=== PATIENT | female | born 1940 | race Caucasian/White ===

== ENCOUNTER 2020-10-29 16:24 | Emergency (ER) | payer MEDICARE ==
--- NOTE | 2020-10-29 19:12 | CT ---
EXAM: CT of the cervical spine without contrast HISTORY: Fall with neck fracture COMPARISON: Cervical spine series 10/29/2020 TECHNIQUE: Multiple contiguous axial images were obtained in a CT of the cervical spine without contr ast. Sagittal and coronal reformats were performed. FINDINGS: There is a fracture of the anterior and inferior aspect of the C2 vertebral body. There is a fracture of the left lateral mass of C2 extending through the vertebral foramen and a fracture of the right pedicle of C2. The vertebral bodies demonstrate normal alignment without subluxation. Moder ate degenerative changes are present. No prevertebral soft tissue swelling is seen. The posterior facets are well aligned. Normal alignment of the skull base with the cervical spine is seen. The lung apices and cervical soft tissues are unremarkable. IMPRESSION: C2 fractures as above.
== END 2020-10-29 22:51 | disposition home or self-care (01) ==
LOC: ERS 16:24
DX: S12.100A Unspecified displaced fracture of second cervical vertebra, initial encounter for closed fracture (principal); I12.9 Hypertensive chronic kidney disease with stage 1 through stage 4 chronic kidney disease, or unspecified chronic kidney disease; N18.30 Chronic kidney disease, stage 3 unspecified; Z87.891 Personal history of nicotine dependence; Z79.82 Long term (current) use of aspirin; Z79.899 Other long term (current) drug therapy; W01.10XA Fall on same level from slipping, tripping and stumbling with subsequent striking against unspecified object, initial encounter
CPT/HCPCS: 72125

== ENCOUNTER 2020-11-16 09:19 | Outpatient (CLI) | payer MEDICARE ==
--- NOTE | 2020-11-16 10:18 | RAD ---
3 views of the cervical spine: 11/16/2020 COMPARISON: 10/29/2020 HISTORY: Cervical spine fracture status post immobilization FINDINGS: The open-mouth odontoid view demonstrates a normal-appearing dens. C1-2 articulation appear s normal on the open-mouth odontoid view. On the lateral examination there is an obliquely oriented mildly anteriorly displaced fracture involving the inferior anterior corner of the C2 vertebral body. Lucency is seen in the region of the pars intraarticularis suggesting an associated hangman's fracture type fracture, better assessed on prior CT performed 10/29/2020. On the lateral exam there is anterolisthesis at the C2-3 level measuring in the 4 mm range, which melvin ears similar when compared to the prior exam. There is disc space narrowing with degenerative endplate change and anterior osteophyte formation at C5-6/C6-7. IMPRESSION: Findings suggesting stable fracture deformities at the C2 level, better assessed on the 1 12/30/[address]
== END 2020-11-16 09:20 | disposition home or self-care (01) ==
LOC: TBSIIMAG 09:19
PROVIDERS: ATTEND Surgery
DX: S12.9XXA Fracture of neck, unspecified, initial encounter (principal)
CPT/HCPCS: 72040

== ENCOUNTER 2020-12-12 08:43 | Outpatient (CLI) | payer MEDICARE ==
--- NOTE | 2020-12-12 10:48 | RAD ---
CERVICAL SPINE SERIES 3 VIEWS: Date: 12/12/2020 HISTORY: Follow-up fracture. COMPARISON: 11/16/2020 exam. FINDINGS: The bones appear demineralized. 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 The C2 fracture and minimal anterolisthesis are all stable as compared to the prior exam. IMPRESSION: Stable fracture deformity at C2. POS: [facility]
== END 2020-12-12 08:44 | disposition home or self-care (01) ==
LOC: TBSIIMAG 08:43
PROVIDERS: ATTEND Surgery
DX: S12.9XXA Fracture of neck, unspecified, initial encounter (principal); M43.8X2 Other specified deforming dorsopathies, cervical region
CPT/HCPCS: 72040

== ENCOUNTER 2021-01-23 09:06 | Outpatient (CLI) | payer MEDICARE | END 2021-01-23 09:07 | disposition home or self-care (01) | LOC: TBSIIMAG 09:06 | PROVIDERS: ATTEND Surgery | DX: S12.100A Unspecified displaced fracture of second cervical vertebra, initial encounter for closed fracture (principal); M47.816 Spondylosis without myelopathy or radiculopathy, lumbar region; M47.814 Spondylosis without myelopathy or radiculopathy, thoracic region; M43.12 Spondylolisthesis, cervical region; M41.9 Scoliosis, unspecified; K44.9 Diaphragmatic hernia without obstruction or gangrene; W19.XXXA Unspecified fall, initial encounter | CPT/HCPCS: 72040; 72072; 72100 ==

== ENCOUNTER 2021-04-01 14:19 | Outpatient (CLI) | payer MEDICARE | END 2021-04-01 14:20 | disposition home or self-care (01) | LOC: BICMAMMO 14:19 | PROVIDERS: ATTEND Internal Medicine | DX: Z13.820 Encounter for screening for osteoporosis (principal); M94.9 Disorder of cartilage, unspecified | CPT/HCPCS: 77080 ==

== ENCOUNTER 2022-03-10 13:46 | Outpatient (CLI) | payer MEDICARE ==
[2022-03-11 00:11] LABS: SARS-CoV-2 PCR by NAA Not Detected (NotDetected)
== END 2022-03-10 13:47 | disposition home or self-care (01) ==
LOC: LABBT 13:46
PROVIDERS: ATTEND Ophthalmology Retina Specialist
DX: H18.422 Band keratopathy, left eye (principal); Z20.822 Contact with and (suspected) exposure to COVID-19
CPT/HCPCS: U0003; U0005

== ENCOUNTER 2022-03-13 05:53 | Day surgery (SDC) | payer MEDICARE ==
[2022-03-11 11:10] VITALS: BMI 26.9
[2022-03-13] MEDS ORDERED: Midazolam HCl 2 mg/2 ml Vial ONE (06:50)
[2022-03-13] MEDS ORDERED: fentaNYL Citrate/PF 100 MCG/2 ML SYRINGE ONE (06:50)
[2022-03-13] MEDS ORDERED: PROPOFOL 20 ML ONE (06:50)
[2022-03-13] MEDS ORDERED: Maxitrol 0.1% Opth Oint 3.5 GM TUBE ONE (07:07)
[2022-03-13] MEDS ORDERED: Lidocaine 4% PF 5 ML AMP ONE (07:07)
[2022-03-13] MEDS ORDERED: Bupivacaine 0.75% 10 ML VIAL ONE (07:07)
== END 2022-03-13 09:00 | disposition home or self-care (01) ==
LOC: SDC 05:53
PROVIDERS: ATTEND Ophthalmology Retina Specialist
PROC: 08Q9XZZ Repair Left Cornea, External Approach (ICD-10-PCS; principal; 2022-03-13)
DX: H18.422 Band keratopathy, left eye (principal); Z79.82 Long term (current) use of aspirin; Z79.890 Hormone replacement therapy; Z79.899 Other long term (current) drug therapy; Z88.5 Allergy status to narcotic agent
CPT/HCPCS: J2250; J2704; J3490

== ENCOUNTER 2022-05-16 21:03 | Inpatient (IN) | payer MEDICARE ==
[~2022-05-16 21:03] MED LIST: ISOVUE-370 76%-LOCM 1 ML ONE
[2022-05-16 21:13] LABS: #Eosinphils 0.1 thou/uL (0.0-0.7); #Lymphocytes 1.6 thou/uL (1.20-3.40); #Monocytes 1.3 thou/uL (0.11-0.59); #Neutrophils 10.3 thou/uL (1.40-6.50); %Basophils 0.3 % (0.0-1.0); %Eosinophils 0.4 % (0.0-10.0); %Lymphocytes 12.1 % (21.0-51.0); %Monocytes 9.5 % (0.0-10.0); %Neutrophils 77.6 % (42.0-75.0); Hemoglobin 14.4 g/dL (12.0-16.0); Mean Corpuscular HGB CONC 33.3 g/dL (32.0-36.0); Mean Corpuscular Hemoglobin 34.1 pg (27.0-31.0); Mean Platelet Volume 7.8 fL (7.4-10.4); Platelet Count 239 thou/uL (130-400); RBC Distribution Width 12.1 % (11.5-14.5); Red Blood Cell (RBC) Count 4.22 mill/uL (4.20-5.40); White Blood Cell (WBC) Count 13.3 thou/uL (4.8-10.8)
[2022-05-16 21:22] LABS: PTT 28.6 sec (22.9-36.1); Prothrombin Time 13.4 sec (12.0-14.7)
[2022-05-16 21:33] LABS: ALT (SGPT) 17 U/L (8-55); AST (SGOT) 56 U/L (5-34); Albumin 3.8 g/dL (3.4-4.8); Alkaline Phosphatase 88 U/L (40-110); Anion Gap 16 mmol/L (10-20); BUN (Urea Nitrogen) 16 mg/dL (9.8-20.1); Bilirubin, Total 0.8 mg/dL (0.2-1.2); CK (CPK) 1394 U/L (29-168); Calc. Creatinine Clearance 0 mL/min (70-130); Calcium 9.9 mg/dL (7.8-10.44); Carbon Dioxide 24 mmol/L (23-31); Chloride 102 mmol/L (98-107); Estimated GFR 53; Globulin 2.9 g/dL (2.4-3.5); Glucose 136 mg/dL (83-110); Potassium 4.2 mmol/L (3.5-5.1); Protein, Total 6.7 g/dL (5.8-8.1); Sodium 138 mmol/L (136-145)
[2022-05-16] MEDS ORDERED: Aspirin Chewable 81 MG TAB ONE (22:25)
[2022-05-16 22:38] LABS: SARS-CoV-2 NAA Rapid Test Not Detected (NotDetected)
[2022-05-16 22:38] LABS: Bacteria/HPF None Seen HPF (None Seen); Bilirubin Negative (Negative); Blood, Urine 1+ (Negative); Clarity Clear (Clear); Glucose, Urine (Dipstick) Normal (Negative); Ketone, Urine 20 mg/dL (Negative); Leukocyte Negative Leu/uL (Negative); Nitrite Negative (Negative); Protein, Urine (Dipstick) 30 mg/dL (Neg-Trace); RBC/HPF 0-3 HPF (0-3); Squamous Epithelial None Seen HPF (0-3); Urobilinogen Normal mg/dL (Less than 2); WBC/HPF 0-3 HPF (0-3); pH, Urine 6.5 (5.0-9.0)
[2022-05-16 22:39] LABS: Specific Gravity, Urine 1.048 (1.002-1.036)
[2022-05-16 23:29] LABS: CKMB 19.2 ng/mL (0-6.6)
[2022-05-17] MEDS ORDERED: Clopidogrel Bisulfate 300 MG TAB PO SCH (00:15)
[2022-05-17] MEDS ORDERED: Ondansetron PF 4 MG/2 ML Vial IVP PRN (00:18)
[2022-05-17] MEDS ORDERED: hydrALAZINE 20 MG/ML VIAL SLOW IVP PRN (00:18)
[2022-05-17] MEDS ORDERED: Acetaminophen 650 MG Suppository PR PRN (00:18)
[2022-05-17] MEDS ORDERED: Ondansetron ODT 4 MG TAB PO PRN (00:18)
[2022-05-17] MEDS ORDERED: Acetaminophen 325 MG TAB PO PRN (00:18)
[2022-05-17] MEDS ORDERED: Aspirin 300 MG Suppository PR SCH ×2 (00:45→09:00)
[2022-05-17 01:17] VITALS: BMI 26.6
[2022-05-17 02:24] LABS: #Basophils 0.1 thou/uL (0.0-0.2); #Neutrophils 8.5 thou/uL (1.40-6.50); %Basophils 0.7 % (0.0-1.0); %Eosinophils 0.3 % (0.0-10.0); %Lymphocytes 17.4 % (21.0-51.0); %Monocytes 8.5 % (0.0-10.0); %Neutrophils 73.1 % (42.0-75.0); Hemoglobin 13.8 g/dL (12.0-16.0); Mean Corpuscular HGB CONC 34.9 g/dL (32.0-36.0); Mean Corpuscular Hemoglobin 35.4 pg (27.0-31.0); Mean Platelet Volume 7.7 fL (7.4-10.4); Platelet Count 217 thou/uL (130-400); RBC Distribution Width 12.2 % (11.5-14.5); White Blood Cell (WBC) Count 11.6 thou/uL (4.8-10.8)
[2022-05-17 02:54] LABS: Anion Gap 15 mmol/L (10-20); BUN (Urea Nitrogen) 16 mg/dL (9.8-20.1); Calc. Creatinine Clearance 57 mL/min (70-130); Calcium 9.3 mg/dL (7.8-10.44); Carbon Dioxide 23 mmol/L (23-31); Cardiac Risk 2.1 (Less than 4.5); Chloride 105 mmol/L (98-107); Cholesterol 136 mg/dl (< 200 Desired); Estimated GFR 64; Glucose 121 mg/dL (83-110); HDL Cholesterol 65 mg/dL (>60 Neg Risk); LDL Cholesterol, Calculated 59 mg/dL; Potassium 3.7 mmol/L (3.5-5.1); Sodium 139 mmol/L (136-145); Triglycerides 58 mg/dL (Less than 150)
[2022-05-17 02:55] LABS: Troponin I 1.966 ng/mL (< 0.028)
[2022-05-17] MEDS ORDERED: Sodium Chloride 0.9% 1,000 ML IV SCH (05:00)
[2022-05-17 05:45] LABS: Critical Call Chem Troponin I RESULT DECREASING; Troponin I 1.614 ng/mL (< 0.028)
[2022-05-17] MEDS: Enoxaparin Sodium 40 MG/0.4 ML SYRINGE SC SCH (09:28)
[2022-05-17] MEDS: Aspirin 81 mg Enteric Coated Tablet PO SCH (11:33)
[2022-05-17] MEDS ORDERED: Morphine 2 MG/ML VIAL SLOW IVP PRN (15:56)
[2022-05-17] MEDS: Ibuprofen 200 MG TAB PO PRN (16:40)
[2022-05-17] MEDS: Carvedilol 3.125 MG TAB PO SCH (16:40)
[2022-05-17] MEDS: Atorvastatin Calcium 40 MG TAB PO SCH ×2 (21:07→21:08)
[2022-05-17] MEDS: PREDNISOLONE L EYE SCH (21:07)
[2022-05-18] MEDS: Levothyroxine Sodium 100 MCG TAB PO SCH (05:02)
[2022-05-18 07:40] LABS: #Basophils 0.1 thou/uL (0.0-0.2); #Eosinphils 0.5 thou/uL (0.0-0.7); #Lymphocytes 1.9 thou/uL (1.20-3.40); #Monocytes 0.8 thou/uL (0.11-0.59); #Neutrophils 4.5 thou/uL (1.40-6.50); %Basophils 1.1 % (0.0-1.0); %Eosinophils 5.9 % (0.0-10.0); %Lymphocytes 24.3 % (21.0-51.0); %Monocytes 10.3 % (0.0-10.0); %Neutrophils 58.4 % (42.0-75.0); Hemoglobin 13.3 g/dL (12.0-16.0); Mean Corpuscular Hemoglobin 33.8 pg (27.0-31.0); Mean Platelet Volume 7.8 fL (7.4-10.4); Platelet Count 195 thou/uL (130-400); RBC Distribution Width 12.2 % (11.5-14.5); Red Blood Cell (RBC) Count 3.93 mill/uL (4.20-5.40); White Blood Cell (WBC) Count 7.7 thou/uL (4.8-10.8)
[2022-05-18 08:04] LABS: ALT (SGPT) 16 U/L (8-55); AST (SGOT) 45 U/L (5-34); Albumin 3.2 g/dL (3.4-4.8); Alkaline Phosphatase 64 U/L (40-110); Anion Gap 14 mmol/L (10-20); BUN (Urea Nitrogen) 20 mg/dL (9.8-20.1); Bilirubin, Total 0.5 mg/dL (0.2-1.2); CK (CPK) 513 U/L (29-168); Calc. Creatinine Clearance 58 mL/min (70-130); Calcium 8.8 mg/dL (7.8-10.44); Carbon Dioxide 22 mmol/L (23-31); Chloride 109 mmol/L (98-107); Estimated GFR 66; Globulin 2.6 g/dL (2.4-3.5); Glucose 109 mg/dL (83-110); Potassium 3.7 mmol/L (3.5-5.1); Protein, Total 5.8 g/dL (5.8-8.1); Sodium 141 mmol/L (136-145)
[2022-05-18 08:17] LABS: CKMB 5.8 ng/mL (0-6.6)
[2022-05-18 08:32] LABS: Troponin I 0.681 ng/mL (< 0.028)
[2022-05-18] MEDS: Ibuprofen 200 MG TAB PO PRN (09:28)
[2022-05-18] MEDS: Aspirin 81 mg Enteric Coated Tablet PO SCH (09:28)
[2022-05-18] MEDS: Enoxaparin Sodium 40 MG/0.4 ML SYRINGE SC SCH (09:28)
[2022-05-18] MEDS: Multivitamin W/ Minerals 1 TAB PO SCH (09:28)
[2022-05-18] MEDS: Vit A,C & E/Lutein/Minerals Tablet PO SCH (09:29)
[2022-05-18] MEDS: FLUoxetine HCl 20 MG CAP PO SCH (09:29)
[2022-05-18] MEDS: PREDNISOLONE L EYE SCH ×2 (09:29→21:19)
[2022-05-18] MEDS: OFLOXACIN L EYE SCH (09:29)
[2022-05-18] MEDS: Carvedilol 3.125 MG TAB PO SCH ×2 (09:29→17:39)
[2022-05-18] MEDS: Fish Oil 1,000 MG CAP PO SCH (09:29)
[2022-05-18] MEDS ORDERED: Communication Order-Pharmacy FS SCH (10:45)
[2022-05-18] MEDS ORDERED: Atorvastatin Calcium 40 MG TAB PO SCH (21:30)
[2022-05-19 05:05] LABS: #Eosinphils 0.4 thou/uL (0.0-0.7); #Monocytes 0.9 thou/uL (0.11-0.59); #Neutrophils 4.3 thou/uL (1.40-6.50); %Basophils 0.6 % (0.0-1.0); %Eosinophils 4.9 % (0.0-10.0); %Lymphocytes 25.7 % (21.0-51.0); %Monocytes 11.6 % (0.0-10.0); %Neutrophils 57.2 % (42.0-75.0); Hemoglobin 13.3 g/dL (12.0-16.0); Mean Corpuscular HGB CONC 33.7 g/dL (32.0-36.0); Mean Corpuscular Hemoglobin 34.4 pg (27.0-31.0); Mean Platelet Volume 7.9 fL (7.4-10.4); Platelet Count 205 thou/uL (130-400); RBC Distribution Width 12.1 % (11.5-14.5); Red Blood Cell (RBC) Count 3.88 mill/uL (4.20-5.40); White Blood Cell (WBC) Count 7.6 thou/uL (4.8-10.8)
[2022-05-19 05:25] LABS: ALT (SGPT) 14 U/L (8-55); AST (SGOT) 35 U/L (5-34); Albumin 3.3 g/dL (3.4-4.8); Alkaline Phosphatase 64 U/L (40-110); Anion Gap 14 mmol/L (10-20); BUN (Urea Nitrogen) 18 mg/dL (9.8-20.1); Bilirubin, Total 0.5 mg/dL (0.2-1.2); CK (CPK) 289 U/L (29-168); Calc. Creatinine Clearance 61 mL/min (70-130); Carbon Dioxide 22 mmol/L (23-31); Chloride 109 mmol/L (98-107); Estimated GFR 70; Globulin 2.6 g/dL (2.4-3.5); Glucose 113 mg/dL (83-110); Potassium 3.6 mmol/L (3.5-5.1); Protein, Total 5.9 g/dL (5.8-8.1); Sodium 141 mmol/L (136-145)
[2022-05-19] MEDS: Fish Oil 1,000 MG CAP PO SCH (07:37)
[2022-05-19] MEDS: FLUoxetine HCl 20 MG CAP PO SCH (07:37)
[2022-05-19] MEDS: Vit A,C & E/Lutein/Minerals Tablet PO SCH (07:37)
[2022-05-19] MEDS: Multivitamin W/ Minerals 1 TAB PO SCH (07:37)
[2022-05-19] MEDS: Levothyroxine Sodium 100 MCG TAB PO SCH (07:38)
[2022-05-19] MEDS: OFLOXACIN L EYE SCH (07:43)
[2022-05-19] MEDS: PREDNISOLONE L EYE SCH ×2 (07:43→20:41)
[2022-05-19] MEDS: Ibuprofen 200 MG TAB PO PRN (07:43)
[2022-05-19] MEDS: Sodium Chloride 0.9% 1,000 ML IV SCH ×2 (10:45→18:20)
[2022-05-19] MEDS: Carvedilol 3.125 MG TAB PO SCH ×2 (10:45→18:14)
[2022-05-19] MEDS: Aspirin 81 mg Enteric Coated Tablet PO SCH (10:46)
[2022-05-19] MEDS ORDERED: Iopamidol 370 76% 50 ML VIAL FS ONE (14:39)
[2022-05-19] MEDS ORDERED: Iopamidol 370 76% 100 ML VIAL ONE (14:39)
[2022-05-19] MEDS ORDERED: Lidocaine 1% (PF) 30 ML VIAL ONE (16:02)
[2022-05-19] MEDS ORDERED: Heparin 10,000 UNITS/ 10 ML VIAL ONE (16:02)
[2022-05-19] MEDS ORDERED: Midazolam HCl 2 mg/2 ml Vial ONE (16:40)
[2022-05-19] MEDS ORDERED: Fentanyl 100 MCG/2 ML VIAL ONE (16:40)
[2022-05-19] MEDS ORDERED: Protamine Sulfate 50 MG/5 ML VIAL ONE (17:06)
[2022-05-19] MEDS ORDERED: Nitroglycerin 4.9 GM Bottle ONE (17:15)
[2022-05-19] MEDS ORDERED: Sodium Chloride 0.9% 200 ML IV PRN (17:27)
[2022-05-19] MEDS ORDERED: Nitroglycerin 0.4 MG TAB (25 Tab Bottle) SL PRN (17:27)
[2022-05-19] MEDS ORDERED: Sodium Chloride 0.9% 1,000 ML IV SCH (17:29)
[2022-05-19] MEDS: Atorvastatin Calcium 40 MG TAB PO SCH (20:41)
[2022-05-20] MEDS: Ibuprofen 200 MG TAB PO PRN (00:47)
[2022-05-20] MEDS: Levothyroxine Sodium 100 MCG TAB PO SCH (05:38)
[2022-05-20] MEDS: PREDNISOLONE L EYE SCH ×2 (09:00→21:03)
[2022-05-20] MEDS: Fish Oil 1,000 MG CAP PO SCH (09:01)
[2022-05-20] MEDS: Multivitamin W/ Minerals 1 TAB PO SCH (09:01)
[2022-05-20] MEDS: FLUoxetine HCl 20 MG CAP PO SCH (09:01)
[2022-05-20] MEDS: Carvedilol 3.125 MG TAB PO SCH ×2 (09:01→18:08)
[2022-05-20] MEDS: OFLOXACIN L EYE SCH (09:01)
[2022-05-20] MEDS: Aspirin 81 mg Enteric Coated Tablet PO SCH (09:01)
[2022-05-20] MEDS: Vit A,C & E/Lutein/Minerals Tablet PO SCH (09:01)
[2022-05-20] MEDS ORDERED: Temazepam 15 MG CAP PO PRN (19:40)
[2022-05-20] MEDS: Atorvastatin Calcium 40 MG TAB PO SCH (20:53)
[2022-05-21] MEDS: Levothyroxine Sodium 100 MCG TAB PO SCH (06:06)
[2022-05-21] MEDS: PREDNISOLONE L EYE SCH ×2 (10:24→20:39)
[2022-05-21] MEDS: Fish Oil 1,000 MG CAP PO SCH (10:24)
[2022-05-21] MEDS: Carvedilol 3.125 MG TAB PO SCH ×2 (10:24→19:28)
[2022-05-21] MEDS: OFLOXACIN L EYE SCH (10:24)
[2022-05-21] MEDS: Vit A,C & E/Lutein/Minerals Tablet PO SCH (10:24)
[2022-05-21] MEDS: Multivitamin W/ Minerals 1 TAB PO SCH (10:25)
[2022-05-21] MEDS: Aspirin 81 mg Enteric Coated Tablet PO SCH (10:25)
[2022-05-21] MEDS: FLUoxetine HCl 20 MG CAP PO SCH (10:25)
[2022-05-21] MEDS: Atorvastatin Calcium 40 MG TAB PO SCH (20:36)
[2022-05-22] MEDS: Levothyroxine Sodium 100 MCG TAB PO SCH (05:20)
[2022-05-22] MEDS: Carvedilol 3.125 MG TAB PO SCH ×2 (07:44→14:54)
[2022-05-22] MEDS: Fish Oil 1,000 MG CAP PO SCH (07:45)
[2022-05-22] MEDS: Aspirin 81 mg Enteric Coated Tablet PO SCH (07:45)
[2022-05-22] MEDS: FLUoxetine HCl 20 MG CAP PO SCH (07:45)
[2022-05-22] MEDS: OFLOXACIN L EYE SCH (07:50)
[2022-05-22] MEDS: Multivitamin W/ Minerals 1 TAB PO SCH (07:50)
[2022-05-22] MEDS: PREDNISOLONE L EYE SCH ×2 (07:51→21:06)
[2022-05-22] MEDS: Vit A,C & E/Lutein/Minerals Tablet PO SCH (07:51)
[2022-05-22] MEDS: Atorvastatin Calcium 40 MG TAB PO SCH (07:52)
[2022-05-22 08:52] LABS: #Eosinphils 0.3 thou/uL (0.0-0.7); #Lymphocytes 1.7 thou/uL (1.20-3.40); #Monocytes 0.8 thou/uL (0.11-0.59); #Neutrophils 4.3 thou/uL (1.40-6.50); %Basophils 0.7 % (0.0-1.0); %Eosinophils 4.3 % (0.0-10.0); %Lymphocytes 23.2 % (21.0-51.0); %Monocytes 11.7 % (0.0-10.0); %Neutrophils 60.1 % (42.0-75.0); Hemoglobin 12.6 g/dL (12.0-16.0); Mean Corpuscular HGB CONC 32.7 g/dL (32.0-36.0); Mean Corpuscular Hemoglobin 33.3 pg (27.0-31.0); Mean Platelet Volume 8.2 fL (7.4-10.4); Platelet Count 201 thou/uL (130-400); RBC Distribution Width 12.1 % (11.5-14.5); White Blood Cell (WBC) Count 7.2 thou/uL (4.8-10.8)
[2022-05-22 09:03] LABS: Anion Gap 10 mmol/L (10-20); BUN (Urea Nitrogen) 18 mg/dL (9.8-20.1); Calc. Creatinine Clearance 62 mL/min (70-130); Calcium 8.7 mg/dL (7.8-10.44); Carbon Dioxide 25 mmol/L (23-31); Chloride 106 mmol/L (98-107); Estimated GFR 71; Glucose 118 mg/dL (83-110); Sodium 137 mmol/L (136-145)
[2022-05-22] MEDS ORDERED: Bupivacaine 0.25% HCL 30 ML VIAL ONE (09:47)
[2022-05-22] MEDS ORDERED: Heparin 5,000 UNITS/ML VIAL ONE (09:47)
[2022-05-22] MEDS ORDERED: EPINEPHrine 1 MG/ML AMP ONE (09:47)
[2022-05-22] MEDS ORDERED: Protamine Sulfate 50 MG/5 ML VIAL ONE (09:47)
[2022-05-22] MEDS ORDERED: Phenylephrine 10 MG/ML VIAL ONE (09:52)
[2022-05-22] MEDS ORDERED: fentaNYL Citrate/PF 100 MCG/2 ML SYRINGE ONE (09:52)
[2022-05-22] MEDS ORDERED: niCARdipine 25 MG/10 ML VIAL ONE (09:52)
[2022-05-22] MEDS ORDERED: Sodium Chloride 0.9% 100 ML ONE (09:57)
[2022-05-22] MEDS ORDERED: CEFAZOLIN 2 GM VIAL ONE (09:57)
[2022-05-22] MEDS ORDERED: Lidocaine 1% PF 5 ML VIAL ONE (10:12)
[2022-05-22] MEDS ORDERED: Glycopyrrolate 0.2 MG/ML 5 ML SYRINGE ONE (10:12)
[2022-05-22] MEDS ORDERED: PROPOFOL 200 MG/20 ML VIAL ONE (10:12)
[2022-05-22] MEDS ORDERED: Rocuronium Bromide 10 MG/ML (10ML VIAL) ONE (10:12)
[2022-05-22] MEDS ORDERED: Ondansetron HCl/PF 4 MG/2 ML Vial IVP PRN (12:05)
[2022-05-22] MEDS ORDERED: Promethazine HCl 25 MG/ML VIAL IVPB PRN (12:05)
[2022-05-22] MEDS ORDERED: Promethazine HCl 25 MG/ML VIAL IM PRN (12:05)
[2022-05-22] MEDS ORDERED: Nitroglycerin 50 MG/250 ML BOT 250 ML IVPB PRN (12:55)
[2022-05-22] MEDS ORDERED: Sodium Chloride 0.9% 1,000 ML IV SCH (12:55)
[2022-05-22] MEDS ORDERED: Morphine 2 MG/ML VIAL SLOW IVP PRN (12:55)
[2022-05-22] MEDS ORDERED: Phenylephrine 40 MG in Sodium Chloride 0.9% 250 ML 250 ML IVPB PRN (12:55)
[2022-05-22] MEDS: Acetaminophen 325 MG TAB PO PRN (13:42)
[2022-05-22] MEDS: CEFAZOLIN 2 GM in Sodium Chloride 0.9% 100 ML IVPB SCH (17:19)
[2022-05-22] MEDS: traMADol HCl 50 MG TAB PO PRN (19:25)
[2022-05-23] MEDS: Acetaminophen 325 MG TAB PO PRN ×3 (00:31→17:00)
[2022-05-23] MEDS: CEFAZOLIN 2 GM in Sodium Chloride 0.9% 100 ML IVPB SCH ×2 (02:50→10:46)
[2022-05-23] MEDS: Levothyroxine Sodium 100 MCG TAB PO SCH (06:17)
[2022-05-23] MEDS: Fish Oil 1,000 MG CAP PO SCH (08:15)
[2022-05-23] MEDS: Aspirin 81 mg Enteric Coated Tablet PO SCH (08:15)
[2022-05-23] MEDS: FLUoxetine HCl 20 MG CAP PO SCH (08:15)
[2022-05-23] MEDS: Multivitamin W/ Minerals 1 TAB PO SCH (08:17)
[2022-05-23] MEDS: Vit A,C & E/Lutein/Minerals Tablet PO SCH (08:17)
[2022-05-23] MEDS: PREDNISOLONE L EYE SCH ×2 (08:18→20:29)
[2022-05-23] MEDS: OFLOXACIN L EYE SCH (08:18)
[2022-05-23] MEDS: Carvedilol 3.125 MG TAB PO SCH ×2 (08:31→17:00)
[2022-05-23] MEDS: traMADol HCl 50 MG TAB PO PRN (20:28)
[2022-05-23] MEDS: Atorvastatin Calcium 40 MG TAB PO SCH (20:28)
[2022-05-24 04:44] LABS: Anion Gap 15 mmol/L (10-20); BUN (Urea Nitrogen) 24 mg/dL (9.8-20.1); Calc. Creatinine Clearance 56 mL/min (70-130); Calcium 8.2 mg/dL (7.8-10.44); Carbon Dioxide 20 mmol/L (23-31); Chloride 108 mmol/L (98-107); Estimated GFR 63; Glucose 111 mg/dL (83-110); Potassium 3.7 mmol/L (3.5-5.1); Sodium 139 mmol/L (136-145)
[2022-05-24 05:45] LABS: Band 8 % (5-11); Eosinophils 5 % (0-10); Hemoglobin 11.2 g/dL (12.0-16.0); Lymphocytes 25 % (21-51); MDiff Complete? YES; Mean Corpuscular Hemoglobin 34.2 pg (27.0-31.0); Mean Platelet Volume 8.5 fL (7.4-10.4); Monocytes 9 % (0-10); Neutrophil 52 % (42-75); Platelet Count 152 thou/uL (130-400); RBC Distribution Width 12.5 % (11.5-14.5); Red Blood Cell (RBC) Count 3.27 mill/uL (4.20-5.40); White Blood Cell (WBC) Count 6.8 thou/uL (4.8-10.8)
[2022-05-24] MEDS: Levothyroxine Sodium 100 MCG TAB PO SCH (06:16)
[2022-05-24] MEDS: traMADol HCl 50 MG TAB PO PRN ×2 (06:36→15:56)
[2022-05-24] MEDS: FLUoxetine HCl 20 MG CAP PO SCH (09:12)
[2022-05-24] MEDS: Aspirin 81 mg Enteric Coated Tablet PO SCH (09:12)
[2022-05-24] MEDS: Fish Oil 1,000 MG CAP PO SCH (09:12)
[2022-05-24] MEDS: Multivitamin W/ Minerals 1 TAB PO SCH (09:12)
[2022-05-24] MEDS: Vit A,C & E/Lutein/Minerals Tablet PO SCH (09:12)
[2022-05-24] MEDS: Carvedilol 3.125 MG TAB PO SCH ×2 (09:12→16:09)
[2022-05-24] MEDS: PREDNISOLONE L EYE SCH ×2 (09:13→21:05)
[2022-05-24] MEDS: OFLOXACIN L EYE SCH (09:13)
[2022-05-24] MEDS: Acetaminophen 325 MG TAB PO PRN (12:33)
[2022-05-24] MEDS: Atorvastatin Calcium 40 MG TAB PO SCH (21:04)
[2022-05-25] MEDS: Levothyroxine Sodium 100 MCG TAB PO SCH (05:31)
[2022-05-25] MEDS: Carvedilol 3.125 MG TAB PO SCH ×2 (09:35→16:47)
[2022-05-25] MEDS: Multivitamin W/ Minerals 1 TAB PO SCH (09:35)
[2022-05-25] MEDS: PREDNISOLONE L EYE SCH ×2 (09:35→20:35)
[2022-05-25] MEDS: FLUoxetine HCl 20 MG CAP PO SCH (09:35)
[2022-05-25] MEDS: Vit A,C & E/Lutein/Minerals Tablet PO SCH (09:35)
[2022-05-25] MEDS: Fish Oil 1,000 MG CAP PO SCH (09:35)
[2022-05-25] MEDS: Aspirin 81 mg Enteric Coated Tablet PO SCH (09:35)
[2022-05-25] MEDS: OFLOXACIN L EYE SCH (09:36)
[2022-05-25] MEDS: traMADol HCl 50 MG TAB PO PRN (16:49)
[2022-05-25] MEDS ORDERED: Acetaminophen 500 MG TAB PO PRN (19:20)
[2022-05-25] MEDS: Atorvastatin Calcium 40 MG TAB PO SCH (20:33)
[2022-05-26] MEDS: Levothyroxine Sodium 100 MCG TAB PO SCH (06:03)
[2022-05-26] MEDS: PREDNISOLONE L EYE SCH ×2 (08:46→20:47)
[2022-05-26] MEDS: FLUoxetine HCl 20 MG CAP PO SCH (08:47)
[2022-05-26] MEDS: Aspirin 81 mg Enteric Coated Tablet PO SCH (08:47)
[2022-05-26] MEDS: Fish Oil 1,000 MG CAP PO SCH (08:47)
[2022-05-26] MEDS: OFLOXACIN L EYE SCH (08:47)
[2022-05-26] MEDS: Carvedilol 3.125 MG TAB PO SCH ×2 (08:47→18:21)
[2022-05-26] MEDS: Multivitamin W/ Minerals 1 TAB PO SCH (08:47)
[2022-05-26] MEDS: Vit A,C & E/Lutein/Minerals Tablet PO SCH (08:47)
[2022-05-26] MEDS ORDERED: Enoxaparin Sodium 40 MG/0.4 ML SYRINGE SC SCH (11:45)
[2022-05-26] MEDS: traMADol HCl 50 MG TAB PO PRN ×2 (14:00→20:56)
[2022-05-26] MEDS: Atorvastatin Calcium 40 MG TAB PO SCH (20:47)
[2022-05-27] MEDS: Levothyroxine Sodium 100 MCG TAB PO SCH (06:23)
[2022-05-27] MEDS ORDERED: Enoxaparin Sodium 40 MG/0.4 ML SYRINGE SC SCH (09:00)
[2022-05-27] MEDS: Aspirin 81 mg Enteric Coated Tablet PO SCH (09:57)
[2022-05-27] MEDS: PREDNISOLONE L EYE SCH (09:57)
[2022-05-27] MEDS: OFLOXACIN L EYE SCH (09:57)
[2022-05-27] MEDS: Fish Oil 1,000 MG CAP PO SCH (09:57)
[2022-05-27] MEDS: Vit A,C & E/Lutein/Minerals Tablet PO SCH (09:57)
[2022-05-27] MEDS: FLUoxetine HCl 20 MG CAP PO SCH (09:59)
[2022-05-27] MEDS: Multivitamin W/ Minerals 1 TAB PO SCH (09:59)
[2022-05-27] MEDS: Carvedilol 3.125 MG TAB PO SCH (09:59)
[2022-05-27 12:48] VITALS: BP 118/59; TEMP 99
== END 2022-05-27 16:09 | DRG 37 ==
LOC: ERS 21:03 → OBSVTOIN 23:03 → NEURO 23:03 → CCU 05-22 13:25 → 2NO 05-23 14:17
PROVIDERS: ADMIT Hospitalist; ATTEND Hospitalist
PROC: B2111ZZ Fluoroscopy of Multiple Coronary Arteries using Low Osmolar Contrast (ICD-10-PCS; 2022-05-19)
PROC: 03CH0ZZ Extirpation of Matter from Right Common Carotid Artery, Open Approach (ICD-10-PCS; principal; 2022-05-22)
PROC: 03UH0KZ Supplement Right Common Carotid Artery with Nonautologous Tissue Substitute, Open Approach (ICD-10-PCS; 2022-05-22)
DX: I63.511 Cerebral infarction due to unspecified occlusion or stenosis of right middle cerebral artery (principal); I21.4 Non-ST elevation (NSTEMI) myocardial infarction; G81.94 Hemiplegia, unspecified affecting left nondominant side; I51.81 Takotsubo syndrome; Z66 Do not resuscitate; Z20.822 Contact with and (suspected) exposure to COVID-19; R29.810 Facial weakness; M19.90 Unspecified osteoarthritis, unspecified site; E11.22 Type 2 diabetes mellitus with diabetic chronic kidney disease; I12.9 Hypertensive chronic kidney disease with stage 1 through stage 4 chronic kidney disease, or unspecified chronic kidney disease; M41.9 Scoliosis, unspecified; K21.9 Gastro-esophageal reflux disease without esophagitis; R47.81 Slurred speech; E78.00 Pure hypercholesterolemia, unspecified; F32.A Depression, unspecified; R29.705 NIHSS score 5; I65.23 Occlusion and stenosis of bilateral carotid arteries; I44.7 Left bundle-branch block, unspecified; I25.10 Atherosclerotic heart disease of native coronary artery without angina pectoris; Z88.5 Allergy status to narcotic agent; Z79.890 Hormone replacement therapy; Z79.82 Long term (current) use of aspirin; Z79.899 Other long term (current) drug therapy; Z94.7 Corneal transplant status; Z87.891 Personal history of nicotine dependence; Z90.09 Acquired absence of other part of head and neck; Q12.0 Congenital cataract; Z86.12 Personal history of poliomyelitis
CPT/HCPCS: 36415; 36416; 70450; 70496; 70498; 70551; 71045; 72170; 80048; 80053; 80061; 81003; 81015; 82550; 82553; 82607; 82746; 83880; 84443; 84484; 85025; 85347; 85610; 85730; 93005; 93010; 93306; 93458; 94760; 99152; 99153; C1768; J0171; J0690; J1642; J1644; J1650; J2001; J2250; J2370; J2704; J2710; J2720; J3010; J3490; J7050; Q9966; Q9967; S0020; U0002; U0003; U0005